=== PATIENT | female | born 1985 | race Caucasian/White ===

== ENCOUNTER 2016-07-09 13:13 | Inpatient (IN) | payer SELFPAY ==
[~2016-07-09] VITALS: Ht 167.6 cm; Wt 43.1 kg
--- NOTE | ~2016-07-09 | O ---
[place], [place] OPERATIVE NOTE [facility]: [id number] UNIT #: [id number] ROOM: 406 DOCTOR: CHIDI BENITEZ,DEXTER BIRTHDATE: [birth year] DOS: INDICATIONS: The patient is a 31-year-old who has presented with chief complaint of nonspecific abdominal pain, diarrhea, epigastric distress, dyspepsia, undergoing investigation radiologic studies and lab results were unremarkable. PROCEDURE: Today's procedure part of investigation is panendoscopy and colonoscopy. PREMEDICATION: Versed and Diprivan. SCOPE: Olympus forward-viewing gastroscope Q10 video. REPORT: After putting the patient in the left lateral position and after application of lubricant to the scope, the scope was introduced; thereafter, under direct visualization, advanced through the length of the esophagus without difficulty. Mild gastritis was seen after air entry to the gastric pouch. Antrum was biopsied. Duodenal bulb, second and third part within normal limits. The patient extubated, tolerated procedure well. IMPRESSION: Gastritis, status post biopsy. PLAN AND DISCUSSION: Omeprazole 20 mg 1 every day would suffice management, bile reflux had been also noticed. I am going to proceed with colonoscopic evaluation due to symptomatology that she is expressing and that being diarrhea, abdominal pain, cramp. DEXTER MURILLO MD CM:OPRECORD:OPERATIVE NOTE 1513 00 DEXTER MURILLO MD 07/11/161900 interface
--- NOTE | ~2016-07-09 | DS ---
[place], [place] DISCHARGE SUMMARY NAME: MINH PAL UNIT #: [id number] ROOM: 406 DOCTOR: MISTI BARTON MD BIRTHDATE: [birth year] DOS: 07/12/2016 DISCHARGE DIAGNOSES: 1. Abdominal pains, some diarrhea, nausea and vomiting, resolved. The patient is status post EGD and colonoscopy by Dr. Johnson. 2. Urinary tract infection with Staphylococcus epidermidis treated with Levaquin. 3. History of seizure disorder without any recent seizures. 4. Major depression, recurrent, mild. 5. Generalized anxiety disorder. HOSPITAL COURSE: The patient was admitted by Dr. Annmarie Montaño for severe nausea and vomiting, which was recurrent for about 3 days. She was unable to tolerate any food or fluids. The patient after admission was found to have urinary tract infection and the urine cultures grew Staphylococcus epidermidis, sensitive to quinolones. The patient was treated with Levaquin and will be sent home on ciprofloxacin, history of generalized disorder, the patient without any new seizures. Nausea, vomiting and diarrhea have resolved. The patient underwent EGD and colonoscopy by Dr. Johnson without significant abnormality except for some gastritis and acid reflux signs. The patient is feeling better and would like to go home today. LABORATORY DATA: Blood cultures negative. Urine cultures as mentioned above growing Staphylococcus epidermidis. Normal serum electrolytes, BUN and creatinine. Normal CBC. DISCHARGE MANAGEMENT: The patient to be kept on mirtazapine 30 mg at bedtime, lamotrigine 25 mg twice a day and 200 mg at bedtime, clonazepam 0.5 mg b.i.d., ciprofloxacin twice a day for 5 days. Follow up with Dr. Montaño this week. [place], [place] DISCHARGE SUMMARY NAME: MINH PAL UNIT #: [id number] ROOM: 406 DOCTOR: MISTI BARTON MD BIRTHDATE: [birth year] MISTI BARTON MD CM:DISCHARG 1550 [id number] MISTI BARTON MD 07/12/16 1703 interface
--- NOTE | ~2016-07-09 | O ---
[place], [place] OPERATIVE NOTE [id number] UNIT #: [id number] ROOM: 406 DOCTOR: CHIDI BENITEZ,DEXTER BIRTHDATE: [birth year] DOS: PROCEDURE: Today's procedure therefore as part of investigation is colonoscopy. PREMEDICATIONS: Versed and Diprivan. SCOPE: Olympus forward-viewing colonoscope 10L video. REPORT: After putting the patient in the left lateral position and after application of lubricant to rectal pouch and digital examination, scope was introduced. Thereafter, under direct visualization, I advanced through the length of colon without difficulty. Base of cecum could not be explored due to the presence of solid stool in the right colon, however. The patient extubated, otherwise tolerated the procedure well. There was no evidence of ischemic colitis or any pathology otherwise to be contributing to the diarrhea, change in bowel habit, and abdominal pain. IMPRESSION: Normal colonoscopic examination. DEXTER MURILLO MD CM:OPRECORD:OPERATIVE NOTE 1513 01 DEXTER MURILLO MD 07/11/161902 interface
--- NOTE | ~2016-07-09 | WRIGHTHP ---
[place], [place] PATIENT HISTORY AND PHYSICAL EXAM NAME: MINH PAL [facility] #: [id number] UNIT #: [id number] ROOM: 406 DOCTOR: JORGE LUIS SILVER MD BIRTHDATE: [birth year] DOS: 07/09/2016 HISTORY OF PRESENT ILLNESS: The patient is 31 years old. The patient came into the office with complaints of severe nausea and emesis of multiple times for the last 3 days. She has not been eating or drinking anything for the last 3 days. She denied having any chest pains or palpitations, but she was extremely tired and weak and had minimal abdominal discomfort. Denies having any chest pains, but she did have a temperature of 101.5 in the office. PAST MEDICAL HISTORY: Significant for: 1. Seizure disorder. 2. Major depression, mild, recurrent. 3. Generalized anxiety disorder. MEDICATIONS: Lamictal 225 b.i.d., Klonopin 0.5 b.i.d., Remeron 30 daily. SOCIAL HISTORY: Nonsmoker, does not use any alcohol. PHYSICAL EXAMINATION: GENERAL: The patient is awake and alert and oriented. VITAL SIGNS: Graphic trend shows a pressure of 90/60, pulse of 60, respirations 14, temperature 100.5. LUNGS: Diminished breath sounds. HEART: Regular. ABDOMEN: Soft, tenting of the skin was noted. The mouth is coated and dry. EXTREMITIES: Without any edema. ASSESSMENT AND PLAN: The patient with high grade fever, possibly of urinary tract infection. She also appears to be quite dehydrated clinically, so I sent the patient to the Emergency Room. In the ER, she had multiple episodes of nausea and emesis again. Continued to have low grade temperature, so we decided to admit her. The white cell count was 11.3. Comprehensive did not show any abnormalities other than the carbon dioxide of 34. Monospot was negative. Strep screen was negative. Urinalysis showed presence of ketones, nitrite and leukocyte esterase positive, 3+ blood and bacteria. ASSESSMENT AND PLAN: 1. Urinary tract infection with possible urosepsis. The patient has been placed on IV fluids and IV antibiotics. Antiemetics and Tylenol has been ordered. Blood cultures and urine cultures pending. 2. Nausea and emesis resulting in dehydration. IV fluids will be given. The patient this morning feels much better. She has not had any fevers since admission. The last temperature was at midnight. She has only had 1 emesis since admission and feels that she should be able to go home today. So, pending nothing unforeseen, the patient is going to be discharged around 3:00 today. I already have given her a prescription through the office for Cipro 500 b.i.d. and Zofran 8 mg daily, which is in the pharmacy at this present time, so no prescriptions were given today. [place], [place] PATIENT HISTORY AND PHYSICAL EXAM NAME: MINH PAL UNIT #: [id number] ROOM: [facility] DOCTOR: JORGE LUIS SILVER MD BIRTHDATE: [birth year] JORGE LUIS SILVER MD CM:HISPHYS:PATIENT HISTORY AND PHYSICAL EXAMINATION 08 9 JORGE LUIS SILVER MD 07/10/16 09 interface
--- NOTE | ~2016-07-09 | PR ---
[place], [place] PROGRESS NOTE NAME: MINH PAL [facility] #: [id number] UNIT #: [id number] ROOM: 406 DOCTOR: MISTI BARTON MD BIRTHDATE: [birth year] DOS: 07/11/2016 SUBJECTIVE: The patient is still complaining of abdominal pains, but says her nausea has resolved and she is feeling hungry and abdominal pains are improving. The patient says she is going for colonoscopy today. OBJECTIVE: VITAL SIGNS: Blood pressure 116/78, heart rate 73 beats per minute, breathing 20 times per minute, temperature 99 degrees Fahrenheit. GENERAL APPEARANCE: The patient is alert and oriented x 3, in no visible distress. HEENT AND NECK: Exam within normal limits. CARDIOVASCULAR SYSTEM: Heart rate is regular in rate and rhythm. S1 and S2 normally audible. LUNGS: Clear to auscultation. ABDOMEN: Generalized discomfort on abdominal palpation. EXTREMITIES: Without significant cyanosis or edema. IMPRESSION AND PLAN: 1. Urinary tract infection with urine cultures growing Staph epi sensitive to Levaquin, which patient is already receiving. 2. History of seizure disorder without any recent seizures. 3. Generalized anxiety disorder and major depression, recurrent, mild. 4. Suspected urosepsis. The patient is being treated with IV antibiotics. 5. Nausea and vomiting has resolved. Some abdominal discomfort remains and the patient is being taken for colonoscopy by Dr. Johnson, today, the auto parts professional. MISTI BARTON MD CM:PNTRANS [phone] MISTI BARTON MD 07/12/16 0147 interface
--- NOTE | ~2016-07-09 | CON ---
[place], [place] REPORT OF CONSULTATION [id number] UNIT #: [id number] ROOM: 406 DOCTOR: CHIDI BENITEZDEXTER BIRTHDATE: [birth year] DOS: 07/11/2016 HISTORY OF PRESENT ILLNESS: A 31-year-old patient who was presented with chief complaint of epigastric abdominal pain as well as nausea and abnormal CT scan of the abdomen, abnormal urinalysis, had Gram-positive cocci in the urine, which is being addressed. The blood cultures have been negative. The patient has had a series of workup done. Monospot unremarkable. CBC: White blood cell 11, H and H 15 and 43. Comprehensive metabolic panel, electrolyte balanced. Liver function tests essentially unremarkable. Amylase, lipase within normal limits. CT abdominal series, no acute cardiopulmonary pathology. CT scan of the abdomen and pelvis was done, no distinct intraabdominal and pelvic pathology were noticed. There is no bowel wall thickening. Appendix within normal limits. No lymph node enlargement. CBC differential was reassessed. Blood cultures reassessed which is negative. Strep throat was reassessed negative. PAST MEDICAL HISTORY: Associated with seizure disorder, depression, anxiety, nausea and epigastric pain. SOCIAL HISTORY: Nonsmoker. She said she is nonalcohol consumer. MEDICATIONS: Not taking any medications. Medication list was noticed. ALLERGIES: BEE STING. FAMILY HISTORY: Noncontributory. PAST SURGICAL HISTORY: Cryosurgery. REVIEW OF SYSTEMS: HEENT: Denies double vision, blurred vision. RESPIRATORY: Denies shortness of breath. CARDIOVASCULAR: Denies chest pain. DIGESTIVE SYSTEM: Epigastric distress, abdominal pain. PHYSICAL EXAMINATION: VITAL SIGNS: Stable. HEENT: Nontraumatic. Mouth and buccal mucosa benign. NECK: Supple, no thyromegaly, no cervical lymphadenopathy. CHEST: Symmetric anatomy, equal expansion. No wheeze, no rhonchi. HEART: Normal sinus rhythm, no gallop, no murmur. ABDOMEN: Soft. No hepato-organomegaly. Bowel sounds present. Nonspecific epigastric pain. EXTREMITIES: No cyanosis, no pedal edema. NEUROLOGIC: Alert, oriented to time, place, person. Sensory, motor intact. Cranial nerves 2 through 12 intact. IMPRESSION: Abdominal pain, epigastric distress, nausea, urinary tract infection. PLAN: On discussion antibiotic therapy, Gram-positive cocci and investigation [place], [place] REPORT OF CONSULTATION NAME: MINH PAL UNIT #: [id number] ROOM: 406 DOCTOR: CHIDI BENITEZ,DETXER BIRTHDATE: [birth year] of upper GI symptomatology of nausea, near vomiting as well. She is going to get a colonoscopic evaluation for diarrhea assessment. Clinical reassessment. DEXTER MURILLO MD CM:CONSTR:REPORT OF CONSULTATION 1443 07/12/16 0718 interface
[~2016-07-09 13:13] MED LIST: CIPRO500 MG PO; CLARITIN10 MG PO; COLACE100 MG PO; COMBIVENT1 ARO IH; COMPAZINE SR10 MG PO; COMPAZINE10 MG PO; DONNATAL1 TAB PO; FESO4 PO; LAMICTAL200 MG PO; LAMICTAL25 MG PO; PRENATAL1 TA1 PO; PROTONIX20 MG PO; TRAMADOL HCL50 MG PO; TYLENOL W/CODEI1 TA2 PO; TYLENOL500 MG PO; ZITHROMAX Z PA250 MG PO; ZOFRAN ODT4 MG SL; ZOFRAN4 MG PO; Zofran4 MG PO
[2016-07-09 13:26] VITALS: BP 122/73
[2016-07-09 14:05] LABS: BASO % 0.2 % (0.0-1.0); EOS % 0.1 % (1.0-4.0); HEMATOCRIT 43.6 % (37.0-47.0); HEMOGLOBIN 15.2 g/dl (12.0-16.0); LYMPH # 1.7 10*3/uL (1.3-4.4); LYMPH % 15.3 % (27.0-41.0); MEAN CELL VOLUME 95.4 fl (81.0-99.0); MEAN CORPUSCULAR HGB 33.3 pg (27.0-31.0); MEAN CORPUSCULAR HGB CONC 34.9 g/dl (33.0-37.0); MEAN PLATELET VOLUME 10.7 fl (9.6-12.3); MONO # 0.7 10*3/uL (0.1-1.0); MONO % 6.1 % (3.0-9.0); NEUT # 8.8 10*3/uL (2.3-7.9); NEUT % 77.9 % (47.0-73.0); PLATELET COUNT AUTOMATED 177 10*3/uL (130-400); RED BLOOD COUNT 4.57 10*6/uL (4.10-5.10); WHITE BLOOD COUNT 11.3 10*3/uL (4.8-10.8)
[2016-07-09 14:22] LABS: ALBUMIN 4.9 gm/dl (3.1-4.5); ALKALINE PHOSPHATASE 63 U/L (45-117); BILIRUBIN, TOTAL 0.8 mg/dl (0.2-1.0); BUN 23 mg/dl (7-24); CARBON DIOXIDE 34 mmol/L (21-32); CHLORIDE 99 mmol/L (98-107); EST GLOM FILT AFRICAN AMERICAN > 60 ml/min; GLUCOSE 95 mg/dL (65-99); POTASSIUM 3.7 mmol/L (3.5-5.1); SGOT/AST 16 IU/L (3-35); SGPT/ALT 24 U/L (12-78); SODIUM 138 mmol/L (136-145); TOTAL PROTEIN 8.2 gm/dL (6.4-8.2)
[2016-07-09 15:51] LABS: BILIRUBIN NEGATIVE (NEGATIVE); BLOOD 3+ (NEGATIVE); CLARITY CLOUDY (CLEAR); COLOR YELLOW (YELLOW); GLUCOSE NEGATIVE (NEGATIVE); KETONE 1+ (NEGATIVE); LEUKO ESTERASE 1+ (NEGATIVE); NITRITE POSITIVE (NEGATIVE); PH 6.5 (5.0-9.0); PROTEIN 1+ (NEGATIVE); SPECIFIC GRAVITY 1.015 (1.005-1.030); UROBILINOGEN 0.2 E.U./dl (0.2-1.0)
[2016-07-09 16:02] LABS: BACTERIA 4+; URINE REFLEX COMMENT YES (NO); WBC 31-40 wbc/hpf (0-5)
[2016-07-09 20:00] VITALS: BP 122/71
[2016-07-09] MEDS ORDERED: REMERON30 M1 PO (20:01)
[2016-07-09] MEDS ORDERED: KLONOPIN0.5 MG PO (20:02)
[2016-07-10] VITALS: BP 110/60
[2016-07-10 06:54] LABS: BASO % 0.3 % (0.0-1.0); EOS % 0.1 % (1.0-4.0); HEMOGLOBIN 13.5 g/dl (12.0-16.0); LYMPH % 19.3 % (27.0-41.0); MEAN CELL VOLUME 95.4 fl (81.0-99.0); MEAN CORPUSCULAR HGB CONC 34.6 g/dl (33.0-37.0); MEAN PLATELET VOLUME 11.1 fl (9.6-12.3); MONO # 0.8 10*3/uL (0.1-1.0); MONO % 7.3 % (3.0-9.0); NEUT # 7.6 10*3/uL (2.3-7.9); NEUT % 72.6 % (47.0-73.0); PLATELET COUNT AUTOMATED 148 10*3/uL (130-400); RED BLOOD COUNT 4.09 10*6/uL (4.10-5.10); RED CELL DISTRI WIDTH 11.9 % (0-14.5); WHITE BLOOD COUNT 10.4 10*3/uL (4.8-10.8)
[2016-07-10 07:27] LABS: BUN 14 mg/dl (7-24); CARBON DIOXIDE 29 mmol/L (21-32); CHLORIDE 106 mmol/L (98-107); EST GLOM FILT AFRICAN AMERICAN > 60 ml/min; GLUCOSE 91 mg/dL (65-99); POTASSIUM 3.7 mmol/L (3.5-5.1); SODIUM 143 mmol/L (136-145)
[2016-07-10 08:00] VITALS: BP 112/71
[2016-07-10 12:00] VITALS: BP 117/66
[2016-07-10 16:00] VITALS: BP 114/64
[2016-07-10 20:00] VITALS: BP 119/68
[2016-07-11] VITALS (9 sets, daily range): BP systolic 105–162; BP diastolic 41–85
[2016-07-12] VITALS: BP 121/75
[2016-07-12 08:00] VITALS: BP 90/60
[2016-07-12 12:00] VITALS: BP 105/58
[2016-07-12] MEDS ORDERED: CIPRO500 MG PO (15:42)
== END 2016-07-12 16:22 | disposition home or self-care (01) | DRG 690 ==
LOC: ED 13:13 → EDHOLD 17:06 → 4E 18:22
PROVIDERS: Emergency Medicine; Internal Medicine
PROC: 0DB68ZX Excision of Stomach, Via Natural or Artificial Opening Endoscopic, Diagnostic (ICD-10-PCS; principal; 2016-07-11)
PROC: 0DJD8ZZ Inspection of Lower Intestinal Tract, Via Natural or Artificial Opening Endoscopic (ICD-10-PCS; principal; 2016-07-11)
DX: N39.0 Urinary tract infection, site not specified (principal); F33.0 Major depressive disorder, recurrent, mild; B95.7 Other staphylococcus as the cause of diseases classified elsewhere; K29.70 Gastritis, unspecified, without bleeding; K21.9 Gastro-esophageal reflux disease without esophagitis; E86.0 Dehydration; F17.210 Nicotine dependence, cigarettes, uncomplicated; G40.909 Epilepsy, unspecified, not intractable, without status epilepticus; F41.1 Generalized anxiety disorder; Z91.030 Bee allergy status; Z82.49 Family history of ischemic heart disease and other diseases of the circulatory system; Z82.3 Family history of stroke; Z83.3 Family history of diabetes mellitus

== ENCOUNTER 2016-12-08 16:04 | Emergency (ER) | payer SELFPAY ==
[~2016-12-08] VITALS: Ht 157.4 cm; Wt 49.9 kg
[~2016-12-08 16:04] MED LIST changes: +KLONOPIN0.5 MG PO; +REMERON30 M1 PO
[2016-12-08 17:05] LABS: BASO % 0.5 % (0.0-1.0); EOS # 0.1 10*3/uL (0.0-0.4); EOS % 1.1 % (1.0-4.0); HEMATOCRIT 41.9 % (37.0-47.0); HEMOGLOBIN 14.4 g/dl (12.0-16.0); LYMPH # 2.6 10*3/uL (1.3-4.4); LYMPH % 33.1 % (27.0-41.0); MEAN CELL VOLUME 96.8 fl (81.0-99.0); MEAN CORPUSCULAR HGB 33.3 pg (27.0-31.0); MEAN CORPUSCULAR HGB CONC 34.4 g/dl (33.0-37.0); MEAN PLATELET VOLUME 10.4 fl (9.6-12.3); MONO # 0.4 10*3/uL (0.1-1.0); MONO % 4.7 % (3.0-9.0); NEUT # 4.8 10*3/uL (2.3-7.9); NEUT % 60.2 % (47.0-73.0); PLATELET COUNT AUTOMATED 168 10*3/uL (130-400); RED BLOOD COUNT 4.33 10*6/uL (4.10-5.10); RED CELL DISTRI WIDTH 11.9 % (0-14.5); WHITE BLOOD COUNT 7.9 10*3/uL (4.8-10.8)
[2016-12-08 17:15] LABS: BILIRUBIN NEGATIVE (NEGATIVE); BLOOD 1+ (NEGATIVE); CLARITY CLEAR (CLEAR); COLOR YELLOW (YELLOW); GLUCOSE NEGATIVE (NEGATIVE); KETONE NEGATIVE (NEGATIVE); LEUKO ESTERASE 1+ (NEGATIVE); NITRITE NEGATIVE (NEGATIVE); SPECIFIC GRAVITY <= 1.005 (1.005-1.030); UROBILINOGEN 0.2 E.U./dl (0.2-1.0)
[2016-12-08 17:19] LABS: BUN 10 mg/dl (7-24); CHLORIDE 105 mmol/L (98-107); CREATININE 0.92 mg/dL (0.55-1.02); POTASSIUM 3.8 mmol/L (3.5-5.1); SODIUM 140 mmol/L (136-145)
[2016-12-08 17:23] VITALS: BP 106/60
[2016-12-08 17:24] LABS: B-hCG (QUALITATIVE) NEGATIVE (NEGATIVE)
[2016-12-08 17:31] LABS: BACTERIA 2+; CALCIUM OXALATE CRYSTALS TRACE
[2016-12-08] MEDS ORDERED: Meclizine25 MG PO (18:02)
[2016-12-08] MEDS ORDERED: AUGMENTIN 875875 MG PO (19:03)
== END 2016-12-08 19:17 | disposition home or self-care (01) ==
LOC: ED 16:04
PROVIDERS: Emergency Medicine
DX: R55 Syncope and collapse (principal); J01.90 Acute sinusitis, unspecified; R42 Dizziness and giddiness; R51 Headache; H53.8 Other visual disturbances; F17.200 Nicotine dependence, unspecified, uncomplicated; Z91.030 Bee allergy status; Z79.899 Other long term (current) drug therapy

== ENCOUNTER 2017-06-22 08:13 | Inpatient (IN) | payer SELFPAY ==
[~2017-06-22] VITALS: Ht 157.4 cm; Wt 47.4 kg
[2017-06-22] VITALS (8 sets, daily range): BP systolic 103–123; BP diastolic 56–77
--- NOTE | ~2017-06-22 | PR ---
[place], [place] PROGRESS NOTE NAME: MINH PAL [facility] #: [id number] UNIT #: [id number] ROOM: 411 DOCTOR: MISTI BARTON MD BIRTHDATE: [birth year] DOS: 06/23/2017 SUBJECTIVE: The patient still with complaints of abdominal pains, although her nausea and vomiting has improved from yesterday. OBJECTIVE: VITAL SIGNS: Blood pressure 121/78, heart rate 55 beats per minute, breathing 18 times per minute, temperature of 98.2 going up to 99.5 degrees Fahrenheit. GENERAL APPEARANCE: The patient is alert and oriented x 3, in no visible distress. HEENT AND NECK: Exam within normal limits. CARDIOVASCULAR SYSTEM: Heart rate is regular in rate and rhythm. S1 and S2 normally audible. LUNGS: Clear to auscultation. ABDOMEN: Some abdominal discomfort on abdominal palpation which is generalized, but no rigidity, guarding or rebound tenderness. EXTREMITIES: Without significant cyanosis or edema. IMPRESSION AND PLAN: 1. Acute viral gastroenteritis with acute abdominal pains with recurrent nausea, vomiting and diarrhea along with urinary tract infection and leukocytosis. The patient is clinically improving with treatment with antinausea and hydration and normal saline. 2. Major depression, recurrent, mild treated and controlled. The patient on lamotrigine, mirtazapine and clonazepam. 3. Generalized anxiety disorder treated and controlled with clonazepam. 4. Dr. Johnson, the tonger, was consulted to help me with management of her intractable nausea and vomiting. 5. Hypokalemia related to recurrent vomiting. I will give her extra potassium supplements. 6. Urinary tract infection with urine cultures growing heavy Gram-negative bacilli. The patient is presently on ceftriaxone which is being continued. MISTI BARTON MD CM:PNTRANS [phone] MISTI BARTON MD 06/24/17 0507 interface
--- NOTE | ~2017-06-22 | DS ---
[place], [place] DISCHARGE SUMMARY NAME: MINH PAL UNIT #: [id number] ROOM: 411 DOCTOR: MISTI BARTON MD BIRTHDATE: [birth year] DOS: 06/24/2017 DISCHARGE DIAGNOSES: 1. Hypokalemia from vomiting, improving with treatment. 2. Acute viral gastroenteritis with acute abdominal pains, improved with treatment. 3. Major depression, recurrent, mild. 4. Generalized anxiety disorder. 5. Urinary tract infection, treated with antibiotics. The patient growing heavy gram-negative bacilli, treated with ceftriaxone. HOSPITAL COURSE: 1. The patient presented to the Emergency Department at [facility] for nausea, vomiting and diarrhea and she was found to have urinary tract infection and was treated with antibiotics. The patient's urine cultures are growing E. coli sensitive to most antibiotics and she will be sent home on Bactrim-DS to continue for one more week. 2. Hypokalemia apparently from recurrent vomiting. The patient was treated with extra potassium supplements and she received more potassium today and if her potassium levels normalized on repeat test at 3:00 p.m., then she can be discharged to home to follow up as an outpatient within a week of discharge. 3. Acute viral gastroenteritis and acute abdominal pains for which patient required extensive treatment with multiple Dr. Johnson, the sql dba, had to be consulted to help with her severe symptoms. The patient also had diarrhea. All her symptoms are mostly resolved, only hypokalemia still needs to be corrected. 4. Major depression, recurrent, mild, treated and controlled. All her home meds were continued. She is on mirtazapine, lamotrigine and clonazepam. 5. Generalized anxiety disorder, treated and controlled with clonazepam. 6. Urinary tract infection with Escherichia coli, treated with ceftriaxone and she will go home on Bactrim-DS and follow up as an outpatient. LABORATORY DATA: Urinary test was normal. Potassium level of 3, to be repeated at 3:00 p.m. again today. No leukocytosis. Normal CBC. [place], [place] DISCHARGE SUMMARY NAME: MINH PAL UNIT #: [id number] ROOM: 411 DOCTOR: MISTI BARTON MD BIRTHDATE: [birth year] MISTI BARTON MD CM:EMILY [phone] MISTI BARTON MD 06/24/17 1038 interface
--- NOTE | ~2017-06-22 | CON ---
[place], [place] REPORT OF CONSULTATION [id number] UN[facility] #: [id number] ROOM: 411 DOCTOR: DEXTER MURILLO MD BIRTHDATE: [birth year] DOS: 06/22/2017 HISTORY OF PRESENT ILLNESS: This is a 32-year-old patient who has been admitted from the Emergency Room with a chief complaint of cough, cold, symptomatology and not feeling well. Thus, the best she can describe it and GI system periodic nausea, vomiting, epigastric distress. She has had a colonoscopic evaluation done in June of last year with the same complaints. Apparently colonoscopic examination was negative. She is continuing to be nicotine user at least a pack day and she is aggressive carbonated soda consumer that based on numerous advise finally she says she has cut down the numbers. PAST MEDICAL HISTORY: Seizure disorder, depression, anxiety. FAMILY HISTORY: Noncontributory. PAST SURGICAL HISTORY: Tonsillectomy, adenoidectomy, oral surgeries. SOCIAL HISTORY: Continues to be well. FAMILY HISTORY: Noncontributory. ADMISSION MEDICATIONS: List reviewed. REVIEW OF SYSTEMS: HEENT: Denies double vision, blurred vision. RESPIRATORY: Denies acute shortness of breath; however, cold symptomatology. DIGESTIVE SYSTEM: Nausea and epigastric distress. No emesis. PHYSICAL EXAMINATION: HEENT: Head normocephalic, nontraumatic. Mouth and buccal mucosa benign, edentulous. NECK: Supple, no thyromegaly, no cervical lymphadenopathy. CHEST: Symmetric anatomy, equal expansion bilaterally. No wheeze, no rhonchi. HEART: Normal sinus rhythm, no gallop, no murmur. ABDOMEN: Soft, flat, no hepato-organomegaly, no pulsatile mass. No rebound tenderness. EXTREMITIES: No cyanosis, no pedal edema. NEUROLOGIC: Alert, oriented to time, place, person. IMPRESSION: Gastritis secondary to excessive carbonated sodas, caffeinated beverages, nicotine, history of seizure disorder, last episode of seizure 2 years ago. PLAN AND DISCUSSION: At the present time, we are going to keep her on Protonix 40 mg daily. We are going to give her a sucralfate 1 gram 2 hours before meals and at bedtime while she is in patient and supportive management otherwise. [place], [place] REPORT OF CONSULTATION NAME: MINH PAL UNIT #: [id number] ROOM: 411 DOCTOR: CHIDI BENITEZ,DEXTER BIRTHDATE: [birth year] DEXTER MURILLO MD CM:CONSTR:REPORT OF CONSULTATION 46 06/23/171927 interface
--- NOTE | ~2017-06-22 | WRIGHTHP ---
[place], [place] PATIENT HISTORY AND PHYSICAL EXAM NAME: MINH PAL [facility] #: [id number] UNIT #: [id number] ROOM: 411 DOCTOR: MISTI BARTON MD BIRTHDATE: [birth year] DOS: 06/22/2017 HISTORY OF PRESENT ILLNESS: The patient is a 32-year-old female with a past medical history of: 1. Generalized seizure disorder. 2. Major depression, recurrent, mild. 3. Generalized anxiety disorder. The patient presented to the Emergency Department at [facility] [place] for nausea, vomiting and diarrhea and she was found to have urinary tract infection. Despite of treatment in the Emergency Department, the patient still had nausea and vomiting and was still having diarrhea and feeling very sick and had significant abdominal pains, so she required admission to the hospital. After admission, the patient curled up in the bed with significant abdominal pains and nausea. REVIEW OF SYSTEMS: CARDIOVASCULAR SYSTEM: No chest pains or palpitations. GASTROINTESTINAL: No nausea, vomiting, and diarrhea. LUNGS: No increasing shortness of breath or wheezing. FAMILY HISTORY: Noncontributory. SOCIAL HISTORY: The patient denies smoking cigarettes, alcohol and drug abuse. HOME MEDICATIONS: The patient takes lamotrigine, mirtazapine, ondansetron, clonazepam. PHYSICAL EXAMINATION: GENERAL: Alert, oriented x 3. Looking uncomfortable because of abdominal pains, but in no visible distress. VITAL SIGNS: Blood pressure 111/56, heart rate of 61 beats per minute, breathing 18 times per minute, temperature 98.6 degrees Fahrenheit. HEENT AND NECK: Extraocular movements are intact. Sclerae are anicteric. Oral mucosa is moist and clean. No obvious facial weakness. Neck is supple without any lymphadenopathy. No thyromegaly. No JVD. No carotid arterial bruits. LUNGS: Clear to auscultation. No wheezing. No rhonchi. CARDIOVASCULAR SYSTEM: Heart rate is regular in rate and rhythm. S1 and S2 normally audible. No significant murmur or any other abnormal cardiac sounds. ABDOMEN: Generalized abdominal discomfort on abdominal palpation in all 4 quadrants. Bowel sounds are present. EXTREMITIES: Without significant cyanosis or edema. Warm to touch. CENTRAL NERVOUS SYSTEM: Alert and oriented x 3. Cranial nerves II-XII are intact. Speech is normal. The patient is able to move all extremities. Normal muscle strength. Deep tendon reflexes are equal on both sides. Plantars were downgoing. LABORATORY DATA: Potassium level low at 3.3. test negative. Rapid Strep negative. Influenza test A and B negative. Urinalysis showing signs of urinary tract infection, 31-40 RBCs and WBCs 41-50 per high power field. [place], [place] PATIENT HISTORY AND PHYSICAL EXAM NAME: MINH PAL [facility] #: [id number] UNIT #: [id number] ROOM: [facility] DOCTOR: MISTI BARTON MD BIRTHDATE: [birth year] cell count elevated at 13,000. IMPRESSION: 1. The patient presenting with acute nausea, vomiting, diarrhea and a urinary tract infection with leukocytosis, white cell count of 13,000, recurrent vomiting and significant abdominal pains. The patient admitted to be treated with Zofran for nausea, hydrated with normal saline for vomiting and diarrhea. Serum electrolytes to be monitored and urine infection to be treated with Rocephin and the patient to be hydrated with normal saline and serum electrolytes and blood counts to be monitored. 2. Major depression, recurrent, mild. Home medications continued. The patient is on lamotrigine, mirtazapine and clonazepam. 3. Generalized anxiety disorder, treated with clonazepam, which was continued. MISTI BARTON MD CM:HISPHYS:PATIENT HISTORY AND PHYSICAL EXAMINATION 1201 1221 MISTI BARTON MD 06/22/17 1220 interface
[~2017-06-22 08:13] MED LIST changes: +AUGMENTIN 875875 MG PO; +Meclizine25 MG PO
[2017-06-22 08:42] LABS: BASO % 0.2 % (0.0-1.0); HEMOGLOBIN 14.8 g/dl (12.0-16.0); LYMPH # 1.2 10*3/uL (1.3-4.4); LYMPH % 9.1 % (27.0-41.0); MEAN CELL VOLUME 91.5 fl (81.0-99.0); MEAN CORPUSCULAR HGB 32.2 pg (27.0-31.0); MEAN CORPUSCULAR HGB CONC 35.2 g/dl (33.0-37.0); MONO # 0.3 10*3/uL (0.1-1.0); MONO % 2.2 % (3.0-9.0); NEUT # 11.4 10*3/uL (2.3-7.9); NEUT % 88.3 % (47.0-73.0); PLATELET COUNT AUTOMATED 193 10*3/uL (130-400); RED BLOOD COUNT 4.59 10*6/uL (4.10-5.10); RED CELL DISTRI WIDTH 11.5 % (0-14.5)
[2017-06-22 08:57] LABS: ALBUMIN 4.3 gm/dl (3.1-4.5); ALKALINE PHOSPHATASE 74 U/L (45-117); BUN 17 mg/dl (7-24); CHLORIDE 98 mmol/L (98-107); CREATININE 0.91 mg/dL (0.55-1.02); LIPASE 127 U/L (73-393); POTASSIUM 3.3 mmol/L (3.5-5.1); SGOT/AST 33 IU/L (3-35); SGPT/ALT 24 U/L (12-78); SODIUM 138 mmol/L (136-145); TOTAL PROTEIN 7.6 gm/dL (6.4-8.2)
[2017-06-22 11:12] LABS: BILIRUBIN NEGATIVE (NEGATIVE); BLOOD 2+ (NEGATIVE); CLARITY CLOUDY (CLEAR); COLOR YELLOW (YELLOW); GLUCOSE NEGATIVE (NEGATIVE); KETONE 1+ (NEGATIVE); LEUKO ESTERASE 3+ (NEGATIVE); NITRITE POSITIVE (NEGATIVE); UROBILINOGEN 0.2 E.U./dl (0.2-1.0)
[2017-06-22 11:28] LABS: BACTERIA 4+; EPITHELIAL CELLS TNTC; RBC 31-40 rbc/hpf (0-2); WBC 41-50 wbc/hpf (0-5)
[2017-06-23 00:29] VITALS: BP 116/74
[2017-06-23 06:57] LABS: BASO % 0.4 % (0.0-1.0); HEMATOCRIT 37.2 % (37.0-47.0); HEMOGLOBIN 12.9 g/dl (12.0-16.0); LYMPH # 1.7 10*3/uL (1.3-4.4); LYMPH % 19.5 % (27.0-41.0); MEAN CELL VOLUME 93.9 fl (81.0-99.0); MEAN CORPUSCULAR HGB 32.6 pg (27.0-31.0); MEAN CORPUSCULAR HGB CONC 34.7 g/dl (33.0-37.0); MEAN PLATELET VOLUME 10.3 fl (9.6-12.3); MONO # 0.4 10*3/uL (0.1-1.0); NEUT # 6.4 10*3/uL (2.3-7.9); NEUT % 74.6 % (47.0-73.0); PLATELET COUNT AUTOMATED 164 10*3/uL (130-400); RED BLOOD COUNT 3.96 10*6/uL (4.10-5.10); RED CELL DISTRI WIDTH 11.4 % (0-14.5); WHITE BLOOD COUNT 8.5 10*3/uL (4.8-10.8)
[2017-06-23 07:24] LABS: BUN 11 mg/dl (7-24); CHLORIDE 105 mmol/L (98-107); CREATININE 0.66 mg/dL (0.55-1.02); POTASSIUM 3.3 mmol/L (3.5-5.1); SODIUM 139 mmol/L (136-145)
[2017-06-23 08:00] VITALS: BP 114/64
[2017-06-23 12:00] VITALS: BP 123/82
[2017-06-23 16:00] VITALS: BP 121/78
[2017-06-23 20:00] VITALS: BP 116/66
[2017-06-23 20:47] LABS: URINE AMPHETAMINES < 1000 (1000ng/ml); URINE BARBITURATES < 200 (200ng/ml); URINE BENZODIAZEPINES < 200 (200ng/ml); URINE CANNABINOIDS (THC) > 50 (50ng/ml); URINE COCAINE < 300 (300ng/ml); URINE METHADONE < 300 (300ng/ml); URINE OPIATES < 300 (300ng/ml)
[2017-06-23 20:50] LABS: URINE PHENCYCLIDINE < 25 (25ng/ml)
[2017-06-24 00:25] VITALS: BP 122/74
[2017-06-24 07:59] LABS: BUN 8 mg/dl (7-24); CHLORIDE 107 mmol/L (98-107); CREATININE 0.68 mg/dL (0.55-1.02); SODIUM 140 mmol/L (136-145)
[2017-06-24 08:00] VITALS: BP 133/89
[2017-06-24] MEDS ORDERED: SEPTDS PO (10:06)
[2017-06-24 12:00] VITALS: BP 117/78
[2017-06-24 16:00] VITALS: BP 139/96
== END 2017-06-24 16:30 | disposition home or self-care (01) | DRG 391 ==
LOC: ED 08:13 → 4E 10:21 → EDHOLD 10:21 → 4E 11:07
PROVIDERS: Emergency Medicine; Internal Medicine
DX: A08.4 Viral intestinal infection, unspecified (principal); K29.71 Gastritis, unspecified, with bleeding; N39.0 Urinary tract infection, site not specified; F33.9 Major depressive disorder, recurrent, unspecified; G40.909 Epilepsy, unspecified, not intractable, without status epilepticus; F41.1 Generalized anxiety disorder; J45.909 Unspecified asthma, uncomplicated; E87.6 Hypokalemia; B96.20 Unspecified Escherichia coli [E. coli] as the cause of diseases classified elsewhere; T43.615A Adverse effect of caffeine, initial encounter; T47.1X5A Adverse effect of other antacids and anti-gastric-secretion drugs, initial encounter; Y92.89 Other specified places as the place of occurrence of the external cause; Z91.030 Bee allergy status; Z87.440 Personal history of urinary (tract) infections; Z83.3 Family history of diabetes mellitus; Z83.0 Family history of human immunodeficiency virus [HIV] disease; Z84.89 Family history of other specified conditions

== ENCOUNTER → 2017-08-26 | Outpatient (CLI) | payer SELFPAY ==
[~2017-08-26] MED LIST changes: +PROTONIX40 MG PO; +SEPTDS PO
== END | disposition home or self-care (01) ==
LOC: US 13:00
DX: G24.9 Dystonia, unspecified (principal)

== ENCOUNTER → 2017-08-31 | Outpatient (CLI) | payer SELFPAY ==
[~2017-08-31] MED LIST changes: +NORCO 5-325 TA1 EACH PO
== END | disposition home or self-care (01) ==
LOC: NM 08-28 07:00
DX: G24.9 Dystonia, unspecified (principal)

== ENCOUNTER → 2017-12-02 | Outpatient (CLI) | payer SELFPAY | END | disposition home or self-care (01) | LOC: RAD 13:50 | DX: R06.02 Shortness of breath (principal) ==

== ENCOUNTER 2018-03-10 09:06 | Inpatient (IN) | payer SELFPAY ==
[~2018-03-10] VITALS: Ht 157.4 cm; Wt 49.9 kg
--- NOTE | ~2018-03-10 | O ---
[place], [place] OPERATIVE NOTE NAME: MINH PAL UNIT #: [id number] ROOM: 506 DOCTOR: DEXTER MURILLO MD BIRTHDATE: [birth year] DOS: 03/12/2018 GASTROENDOSCOPIC REPORT HISTORY OF PRESENT ILLNESS: The patient is a 32-year-old patient who presented with chief complaint of relentless nausea, vomiting, quite distress for a few days. PROCEDURE: Today's procedure part of investigation is panendoscopy plus biopsy and photographic series. PREMEDICATION: Propofol by Anesthesia. SCOPE: Olympus forward-viewing gastroscope Q10 video. REPORT: After putting the patient in left lateral position and application of lubricant to the scope, the scope was introduced. Thereafter, under direct visualization, advanced through the length of esophagus without difficulty. Evidence of reflux esophagitis all the way to thoracic esophagus experienced. A 2 cm hiatal hernia was noticed. Gastric pouch was entered. Large volume of bile was suctioned from proximal gastric pouch and hemorrhagic gastritis identified throughout. Biopsy from antrum was obtained. Duodenal bulb, second and third part patency was assured. Scope withdrawn. GI reflection of the scope was done. Gastric pouch entirely cleaned of all the bilious matter. At this stage, a GI cocktail solution was infused into her stomach proximally and 1 g of sucralfate distally. Air was suctioned out, extubated. The patient tolerated the procedure well. IMPRESSION: Bile reflux esophagitis, hiatal hernia, severe bile reflux hemorrhagic gastritis, status post antral biopsy. PLAN AND DISCUSSION: As identified above. I am going to keep her on Protonix IV 40 mg b.i.d. I am going to start her on sucralfate 2 g slurry 2 hours before meals and at bedtime. We are going to give her 1 Extra Strength Gaviscon tablet an hour after meals if she can tolerate, antiemetics and supportive care. [place], [place] OPERATIVE NOTE NAME: MINH PAL UNIT #: [id number] ROOM: 506 DOCTOR: DEXTER MURILLO MD BIRTHDATE: [birth year] DEXTER MURILLO MD CM:OPRECORD:OPERATIVE NOTE 1635 09 DEXTER MURILLO MD 03/12/181910 interface
--- NOTE | ~2018-03-10 | WRIGHTHP ---
[place], [place] PATIENT HISTORY AND PHYSICAL EXAM NAME: MINH PAL [facility] #: [id number] UNIT #: [id number] ROOM: 506 DOCTOR: MISTI BARTON MD BIRTHDATE: [birth year] DOS: 03/10/2018 HISTORY OF PRESENT ILLNESS: The patient is a 32-year-old female who presented again with intractable nausea, vomiting and some diarrhea, which has happened to her in the past after her cholecystectomy. The patient is unable to keep any food or water down despite of using sublingual ondansetron that she had at home. No chest pain, no shortness of breath. No fever or chills, no other GI or urinary symptoms. PAST MEDICAL HISTORY: 1. Laparoscopic cholecystectomy in September 2017. 2. Generalized anxiety disorder. 3. Major depression, recurrent, mild. REVIEW OF SYSTEMS: RESPIRATORY: No increasing shortness of breath. GASTROINTESTINAL: The patient has nausea, vomiting, diarrhea and constipation. CARDIOVASCULAR: No chest pains or palpitations. FAMILY HISTORY: Noncontributory. SOCIAL HISTORY: Smokes cigarettes. Denies any alcohol or drug abuse. HOME MEDICATIONS: Zofran. ALLERGIES: KNOWN ALLERGIES BEE STINGS. PHYSICAL EXAMINATION: GENERAL APPEARANCE: Alert and oriented x 3, in no visible distress. HEENT AND NECK: Extraocular movements are intact. Sclerae are anicteric. Oral mucosa is moist and clean. No obvious facial weakness. Neck is supple without any lymphadenopathy. No thyromegaly. No JVD. No carotid arterial bruits. LUNGS: Clear to auscultation. No wheezing. No rhonchi. CARDIOVASCULAR SYSTEM: Heart rate is regular in rate and rhythm. S1 and S2 normally audible. No significant murmur or any other abnormal cardiac sounds. ABDOMEN: No obvious organomegaly. Bowel sounds are present. No obvious herniation. Some epigastric tenderness on deep palpation. EXTREMITIES: Without significant cyanosis or edema. Warm to touch. CENTRAL NERVOUS SYSTEM: Alert and oriented x 3. Cranial nerves II-XII are intact. Speech is normal. The patient is able to move all extremities. Normal muscle strength. Deep tendon reflexes are equal on both sides. Plantars were downgoing. LABORATORY DATA: Normal serum electrolytes, bilirubin, liver enzymes. Urinalysis without significant abnormality. Lactic acid level was normal. Leukocytosis, white cell count of 13,000. IMPRESSION: Acute gastroenteritis, viral type. PLAN: To hydrate the patient and treat her nausea and vomiting with Zofran. The patient is already starting to feel better. [place], [place] PATIENT HISTORY AND PHYSICAL EXAM [id number] UN[facility] #: [id number] ROOM: [facility] DOCTOR: ORALIA BENITEZ,MISTI Abraham BIRTHDATE: [birth year] The patient is status post cholecystectomy, apparently developing chronic diarrhea and irritation of her duodenum and reflux disease from bile acids. I will treat this with cholestyramine and see if the patient improves with this treatment. Gastritis on recent EGD by Dr. Johnson on 07/11/2016. It also showed bile reflux. I will also keep her on omeprazole 20 mg a day. MISTI BARTON MD CM:HISPHYS:PATIENT HISTORY AND PHYSICAL EXAMINATION 17 45 MISTI BARTON MD 03/10/182147 interface
--- NOTE | ~2018-03-10 | CON ---
[place], [place] RE[facility]ATION [id number] UN[facility] #: [id number] ROOM: 506 DOCTOR: CHIDI BENITEZDEXTER BIRTHDATE: [birth year] DOS: GASTROENDOSCOPIC REPORT: HISTORY OF PRESENT ILLNESS: This is a 32-year-old patient who was presented with chief complaint of recurrent nausea, vomiting. Her test has been unremarkable. She has been a smoker of a pack of cigarettes and consumer of carbonated sodas and during course of stay, a panel of blood work was done. White blood cell was 13 initially with H and H of 15 and 44, neutrophil of 83. Lactic acid was 0.9. Comprehensive metabolic panel, GFR greater than 60. Chemistry within normal limit. Lipase 131. Beta hCG negative. Urinalysis 2+ bacteria and urine cultures no growth was noticed. Basic metabolic panel, last set sodium of 146, potassium 3.4, chloride 110, all has been recognized. PAST MEDICAL HISTORY: Anxiety, depression. PAST SURGICAL HISTORY: Cholecystectomy. FAMILY HISTORY: Noncontributory. SOCIAL HISTORY: Smoker, nonalcohol consumer, routinely. MEDICATIONS: Antiemetics. ALLERGIES: No known medications. BEE STINGS, however. REVIEW OF SYSTEMS: HEENT: Denies double vision, blurred vision. RESPIRATORY: Denies acute shortness of breath. CARDIOVASCULAR: Denies acute chest pain. DIGESTIVE SYSTEM: Nausea, vomiting persistently. PHYSICAL EXAMINATION: VITAL SIGNS: Stable, distressed with nausea, vomiting. HEENT: Head normocephalic, nontraumatic. Mouth and buccal mucosa benign. NECK: Supple, no thyromegaly, no cervical lymphadenopathy. CHEST: Symmetric anatomy, equal expansion. No wheeze. HEART: Normal sinus rhythm, periodically. I believe that I hear premature beat. ABDOMEN: Soft. No hepato-organomegaly. Bowel sounds present. EXTREMITIES: No cyanosis, no pedal edema. NEUROLOGIC: Fully alert and oriented. She has many tattoos. She denies a history of hepatitis. IMPRESSION: Relentless nausea, vomiting and etiology ambiguous. We are going to organize an EGD today to rule out peptic ulcers insults. Other adjunctive diagnoses: Major depression, anxiety, nicotine dependency. PLAN AND DISCUSSION: She is already on antiemetic and PPI or can progress. [place], [place] REPORT OF CONSULTATION NAME: MINH PAL UNIT #: [id number] ROOM: 506 DOCTOR: CHIDI BENITEZ,DEXTER BIRTHDATE: [birth year] Thank you very much indeed. DEXTER MURILLO MD CM:CONSTR:REPORT OF CONSULTATION 1442 03/13/18 0358 interface
--- NOTE | ~2018-03-10 | PR ---
[place], [place] PROGRESS NOTE NAME: MINH PAL [facility] #: [id number] UNIT #: [id number] ROOM: 506 DOCTOR: MISTI BARTON MD BIRTHDATE: [birth year] DOS: 03/13/2018 SUBJECTIVE: The patient still with nausea, vomiting and stomach pain this morning, although improved. These pains are not happening when she takes an apple juice or last time she took allison dawna and she plans to avoid these foods. OBJECTIVE: GENERAL APPEARANCE: The patient is alert and oriented x 3, in no visible distress. VITAL SIGNS: Blood pressure 135/72, heart rate of 65 beats per minute, afebrile. HEENT AND NECK: Exam within normal limits. CARDIOVASCULAR SYSTEM: Heart rate is regular in rate and rhythm. S1 and S2 normally audible. LUNGS: Clear to auscultation. ABDOMEN: Some epigastric discomfort on palpation. EXTREMITIES: Without significant cyanosis or edema. IMPRESSION: 1. Severe bile reflux, gastritis, recurrent nausea, vomiting, being treated with Protonix, cholestyramine. Patient also takes metoclopramide, Zofran as needed. 2. Constipation from cholestyramine to be treated with MiraLax, which was started. 3. Significant pain in the stomach to be treated with one dose of Dilaudid. 4. Major depression, recurrent, moderate, treated with lamotrigine, mirtazapine. 5. Hypokalemia from vomiting, resolved with extra potassium supplements. Potassium level normal at 3.6 today. 6. Severe generalized anxiety disorder, treated with clonazepam. 7. The patient is status post recent cholecystectomy. MISTI BARTON MD CM:PNTRANS [id number] MISTI BARTON MD 03/14/18 0827 interface
--- NOTE | ~2018-03-10 | DS ---
[place], [place] DISCHARGE SUMMARY NAME: MINH PAL [facility] #: [id number] UNIT #: [id number] ROOM: 506 DOCTOR: MISTI BARTON MD BIRTHDATE: [birth year] DOS: 03/14/2018 DISCHARGE DIAGNOSES: 1. Severe bile acid reflux, gastritis and esophagitis. 2. The patient is status post cholecystectomy. 3. Constipation from cholestyramine. 4. Major depression, recurrent, moderate. 5. Hypokalemia from vomiting. 6. Generalized anxiety disorder. 7. Laparoscopic cholecystectomy in 09/2017. The patient presented to [facility] again with intractable nausea, vomiting, and some diarrhea and this has been going on, off and on since her cholecystectomy. The patient was found to have severe bile acid reflux, gastritis and esophagitis. The patient was kept on Zofran, Carafate, Reglan, Protonix and her symptoms improved. Carafate was also added, omeprazole 20 mg b.i.d. and her symptoms have gradually improved. The patient has not vomited for more than 24 hours now and is tolerating diet. The patient was hydrated with normal saline and is being sent home on present regimen to be followed as an outpatient within a week. MISTI BARTON MD CM:EMILY 1200 27 MISTI BARTON MD 03/14/182134 interface
--- NOTE | ~2018-03-10 | EKG ---
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
--- NOTE | ~2018-03-10 | PR ---
[place], [place] PROGRESS NOTE NAME: MINH PAL [facility] #: [id number] UNIT #: [id number] ROOM: 506 DOCTOR: MISTI BARTON MD BIRTHDATE: [birth year] DOS: 03/12/2018 SUBJECTIVE: The patient complained of significant epigastric pains. She just had vomiting this morning and she is crying. PHYSICAL EXAMINATION: GENERAL APPEARANCE: The patient is alert and oriented x 3, in no visible distress. VITAL SIGNS: Blood pressure 137/69, heart rate of 58 beats per minute, breathing 16 times per minute, temperature 98 degrees Fahrenheit. HEENT AND NECK: Exam within normal limits. CARDIOVASCULAR SYSTEM: Heart rate is regular in rate and rhythm. S1 and S2 normally audible. LUNGS: Clear to auscultation. ABDOMEN: Epigastric tenderness. No rigidity, guarding or rebound tenderness. EXTREMITIES: Without significant cyanosis or edema. IMPRESSION: 1. The patient with severe gastritis and bile acid reflux with a history of cholecystectomy, is being treated with cholestyramine and I have added Protonix to the treatment. Dr. Johnson, the veterinary laboratory diagnostician is also to see her. Because of her abdominal pains this morning, I will give her 1 dose of Dilaudid for relief intravenously. 2. Viral gastroenteritis. The patient is being treated symptomatically and hydrated with normal saline. 3. Nicotine smoke dependence. The patient on nicotine patch. 4. For depression and some psych issues, the patient takes lamotrigine and mirtazapine, which has been continued. 5. For severe generalized anxiety disorder, the patient takes clonazepam. MISTI BARTON MD CM:PNTRANS MISTI BARTON MD 03/12/18 0944 interface
--- NOTE | ~2018-03-10 | PR ---
[place], [place] PROGRESS NOTE NAME: MINH PAL [facility] #: [id number] UNIT #: [id number] ROOM: 506 DOCTOR: MISTI BARTON MD BIRTHDATE: [birth year] DOS: 03/11/2018 SUBJECTIVE: The patient still has some nausea and stomach discomfort, especially after taking cholestyramine this morning because of the flavor, not because of the side effects. OBJECTIVE: GENERAL APPEARANCE: The patient is alert and oriented x 3, in no visible distress. VITAL SIGNS: Blood pressure 108/64, heart rate 66 beats per minute, breathing 18 times per minute, afebrile. HEENT AND NECK: Exam within normal limits. CARDIOVASCULAR SYSTEM: Heart rate is regular in rate and rhythm. S1 and S2 normally audible. LUNGS: Clear to auscultation. ABDOMEN: Epigastric discomfort on abdominal palpation. EXTREMITIES: Without significant cyanosis or edema. IMPRESSION: 1. The patient with gastritis, epigastric tenderness and reflux gastritis, status post cholecystectomy and is now being treated with cholestyramine to see if her symptoms improve. The patient is also on ondansetron for the control of her nausea and being treated with omeprazole. 2. Major depression, recurrent, mild, is reasonably controlled. 3. Generalized anxiety disorder, reasonably controlled. MISTI BARTON MD CM:PNTRANS 2159 MISTI BARTON MD 03/11/182200 interface
[2018-03-10 09:08] VITALS: BP 121/86
[2018-03-10 09:53] LABS: BASO # 0.1 10*3/uL (0.0-0.1); BASO % 0.4 % (0.0-1.0); EOS # 0.1 10*3/uL (0.0-0.4); EOS % 0.4 % (1.0-4.0); HEMATOCRIT 44.3 % (37.0-47.0); HEMOGLOBIN 15.3 g/dl (12.0-16.0); LYMPH # 1.5 10*3/uL (1.3-4.4); LYMPH % 11.8 % (27.0-41.0); MEAN CELL VOLUME 95.3 fl (81.0-99.0); MEAN CORPUSCULAR HGB 32.9 pg (27.0-31.0); MEAN CORPUSCULAR HGB CONC 34.5 g/dl (33.0-37.0); MEAN PLATELET VOLUME 10.2 fl (9.6-12.3); MONO # 0.4 10*3/uL (0.1-1.0); MONO % 3.2 % (3.0-9.0); NEUT # 10.9 10*3/uL (2.3-7.9); NEUT % 83.9 % (47.0-73.0); PLATELET COUNT AUTOMATED 196 10*3/uL (130-400); RED BLOOD COUNT 4.65 10*6/uL (4.10-5.10); RED CELL DISTRI WIDTH 12.2 % (0-14.5)
[2018-03-10 10:07] LABS: ALBUMIN 4.2 gm/dl (3.1-4.5); ALKALINE PHOSPHATASE 92 U/L (45-117); BUN 12 mg/dl (7-24); CHLORIDE 105 mmol/L (98-107); CREATININE 0.86 mg/dL (0.55-1.02); LIPASE 131 U/L (73-393); POTASSIUM 3.6 mmol/L (3.5-5.1); SGOT/AST 21 IU/L (3-35); SGPT/ALT 33 U/L (12-78); SODIUM 139 mmol/L (136-145); TOTAL PROTEIN 7.6 gm/dL (6.4-8.2)
[2018-03-10 10:10] LABS: BETA-HCG, QUANT < 1.0 mIU/mL (1-3)
[2018-03-10 11:25] LABS: BILIRUBIN NEGATIVE (NEGATIVE); BLOOD TRACE-INTACT (NEGATIVE); CLARITY CLOUDY (CLEAR); COLOR YELLOW (YELLOW); GLUCOSE NEGATIVE (NEGATIVE); KETONE TRACE (NEGATIVE); LEUKO ESTERASE TRACE (NEGATIVE); NITRITE NEGATIVE (NEGATIVE); UROBILINOGEN 0.2 E.U./dl (0.2-1.0)
[2018-03-10 11:54] LABS: BACTERIA 2+; EPITHELIAL CELLS 15-20; MUCOUS 1+
[2018-03-10 13:51] VITALS: BP 117/92
[2018-03-10 16:00] VITALS: BP 85/50
[2018-03-10 20:00] VITALS: BP 98/63
[2018-03-11] VITALS: BP 92/58
[2018-03-11 06:57] LABS: BASO % 0.4 % (0.0-1.0); EOS # 0.1 10*3/uL (0.0-0.4); HEMATOCRIT 42.1 % (37.0-47.0); HEMOGLOBIN 14.2 g/dl (12.0-16.0); LYMPH # 3.4 10*3/uL (1.3-4.4); LYMPH % 40.3 % (27.0-41.0); MEAN CELL VOLUME 98.8 fl (81.0-99.0); MEAN CORPUSCULAR HGB 33.3 pg (27.0-31.0); MEAN CORPUSCULAR HGB CONC 33.7 g/dl (33.0-37.0); MEAN PLATELET VOLUME 10.6 fl (9.6-12.3); MONO # 0.6 10*3/uL (0.1-1.0); MONO % 6.6 % (3.0-9.0); NEUT # 4.3 10*3/uL (2.3-7.9); NEUT % 51.5 % (47.0-73.0); PLATELET COUNT AUTOMATED 152 10*3/uL (130-400); RED BLOOD COUNT 4.26 10*6/uL (4.10-5.10); WHITE BLOOD COUNT 8.3 10*3/uL (4.8-10.8)
[2018-03-11 07:06] LABS: BUN 11 mg/dl (7-24); CHLORIDE 107 mmol/L (98-107); CREATININE 0.89 mg/dL (0.55-1.02); POTASSIUM 3.5 mmol/L (3.5-5.1); SODIUM 141 mmol/L (136-145)
[2018-03-11 08:00] VITALS: BP 108/64
[2018-03-11 12:00] VITALS: BP 104/74
[2018-03-11 16:00] VITALS: BP 86/46
[2018-03-12] VITALS (8 sets, daily range): BP systolic 92–137; BP diastolic 53–86
[2018-03-12 06:54] LABS: BUN 7 mg/dl (7-24); CHLORIDE 110 mmol/L (98-107); CREATININE 0.84 mg/dL (0.55-1.02); POTASSIUM 3.7 mmol/L (3.5-5.1); SODIUM 146 mmol/L (136-145)
[2018-03-13] VITALS: BP 105/61
[2018-03-13 07:02] LABS: BUN 9 mg/dl (7-24); CHLORIDE 108 mmol/L (98-107); POTASSIUM 3.6 mmol/L (3.5-5.1); SODIUM 143 mmol/L (136-145)
[2018-03-13 08:00] VITALS: BP 135/72
[2018-03-13 16:00] VITALS: BP 91/53
[2018-03-13 20:00] VITALS: BP 93/56
[2018-03-14] VITALS: BP 101/63
[2018-03-14 08:00] VITALS: BP 102/58
[2018-03-14] MEDS ORDERED: MIRALAX POWDER17 G1 PO (11:56)
[2018-03-14] MEDS ORDERED: QUESTRAN LIGHT4 GM PO (11:56)
[2018-03-14] MEDS ORDERED: Carafate1 GM/10 ML PO (11:56)
[2018-03-14 12:00] VITALS: BP 144/88
[2018-03-14] MEDS ORDERED: OMEPRAZOLE D/R20 MG PO (12:00)
== END 2018-03-14 13:18 | disposition home or self-care (01) | DRG 391 ==
LOC: ED 09:06 → EDHOLD 12:09 → 5E 12:09
PROVIDERS: Emergency Medicine; ADMIT Internal Medicine
PROC: 0DB68ZX Excision of Stomach, Via Natural or Artificial Opening Endoscopic, Diagnostic (ICD-10-PCS; principal; 2018-03-12)
DX: A08.4 Viral intestinal infection, unspecified (principal); K29.71 Gastritis, unspecified, with bleeding; F33.8 Other recurrent depressive disorders; F41.1 Generalized anxiety disorder; F17.210 Nicotine dependence, cigarettes, uncomplicated; K29.70 Gastritis, unspecified, without bleeding; E87.6 Hypokalemia; K21.0 Gastro-esophageal reflux disease with esophagitis; K44.9 Diaphragmatic hernia without obstruction or gangrene; Z91.030 Bee allergy status; Z83.3 Family history of diabetes mellitus; Z82.49 Family history of ischemic heart disease and other diseases of the circulatory system; Z82.3 Family history of stroke; Z90.49 Acquired absence of other specified parts of digestive tract

== ENCOUNTER → 2018-12-20 | Outpatient (CLI) | payer OTHER ==
[~2018-12-20] MED LIST changes: +Carafate1 GM/10 ML PO; +MIRALAX POWDER17 G1 PO; +OMEPRAZOLE D/R20 MG PO; +PERCOCET 5-3251 EACH PO; +QUESTRAN LIGHT4 GM PO
== END | disposition home or self-care (01) ==
LOC: CT 12-17 11:00
DX: N20.0 Calculus of kidney (principal)